=== PATIENT | male | born 1960 | race Caucasian/White ===

== ENCOUNTER → 2024-01-03 08:47 | Outpatient (REF) | payer BC, SELFPAY ==
[2024-01-03 09:51] LABS: Lithium 0.4 mmol/L (0.6-1.2)
== END ==
LOC: REG 08:47
PROVIDERS: ATTENDING PHYSICIAN Psychiatry & Neurology Psychiatry; FAMILY PHYSICIAN Internal Medicine; REFERRING PHYSICIAN Specialist
DX: Z79.899 Other long term (current) drug therapy (principal)
CPT/HCPCS: 36415; 80178

== ENCOUNTER → 2024-02-04 11:18 | Outpatient (REF) | payer BC, SELFPAY ==
[2024-02-04 12:15] LABS: % Basophils 0.5 % (0-2); % Eosinophils 3.5 % (0-6); % Immature Granulocytes 0.2 % (0-0.5); % Lymphocytes 18.2 % (20.5-51.1); % Monocytes 6.2 % (1.7-9.3); % Neutrophils 71.4 % (42.2-75.2); Absolute Eosinophils 0.3 10^3/uL (0-0.7); Absolute Lymphocytes 1.6 10^3/uL (1.2-3.4); Absolute Monocytes 0.5 10^3/uL (0.1-0.6); Absolute Neutrophils 6.1 10^3/uL (1.4-6.5); Hemoglobin 14.5 g/dL (13.0-18.0); Mean Corp Hgb Conc. 33.7 g/dL (33.0-37.0); Mean Corpuscular Hgb 30.2 pg (27.0-31.0); Mean Corpuscular Volume 89.6 fL (80.0-94.0); Mean Platelet Volume 11.1 fL (7.4-10.4); Nucleated Red Blood Cells % 0 % (-); Platelet Count 205 10^3/uL (130-400); Red Cell Dist. Width 13.3 % (11.5-14.5); White Blood Cell Count 8.6 10^3/uL (4.8-10.8)
[2024-02-04 12:38] LABS: ALT (SGPT) 47 U/L (0-50); AST (SGOT) 41 U/L (17-59); Albumin 4.5 g/dl (3.5-5.0); Alkaline Phosphatase 77 U/L (38-126); Blood Urea Nitrogen 17 mg/dl (9-20); Calcium 9.9 mg/dl (8.4-10.2); Carbon Dioxide 28 mmol/L (22-30); Chloride 107 mmol/L (98-107); Glucose 107 mg/dl (70-99); Lithium 0.5 mmol/L (0.6-1.2); Potassium 4.4 mmol/L (3.5-5.1); Sodium 139 mmol/L (135-145); Total Bilirubin 0.6 mg/dl (0.2-1.3); Total Protein 7.1 g/dl (6.3-8.2); eGFR > 60.00
[2024-02-04 13:17] LABS: Free T4 0.92 ng/dl (0.78-2.19); TSH 1.92 uIU/ml (0.47-4.68); Vitamin D, 25-OH*** 77.9 ng/mL (30-80)
[2024-02-04 13:43] LABS: Folate 11.8 ng/ml (2.76-20); Vitamin B12 764 pg/ml (239-931)
[2024-02-05 20:11] LABS: Total T3 (Sendout) 73 ng/dL (80-200)
== END ==
LOC: REG 11:18
PROVIDERS: ATTENDING PHYSICIAN Psychiatry & Neurology Psychiatry; FAMILY PHYSICIAN Internal Medicine
DX: F33.1 Major depressive disorder, recurrent, moderate (principal); E03.9 Hypothyroidism, unspecified; E53.9 Vitamin B deficiency, unspecified; E55.9 Vitamin D deficiency, unspecified; Z51.81 Encounter for therapeutic drug level monitoring
CPT/HCPCS: 36415; 80053; 80178; 82306; 82607; 82746; 84439; 84443; 84480; 85025

== ENCOUNTER → 2024-03-01 09:20 | Outpatient (REF) | payer BC, SELFPAY ==
[2024-03-01 10:47] LABS: Amylase 112 U/L (30-110); Blood Urea Nitrogen 17 mg/dl (9-20); Calcium 9.7 mg/dl (8.4-10.2); Carbon Dioxide 24 mmol/L (22-30); Chloride 108 mmol/L (98-107); Glucose 115 mg/dl (70-99); Lipase 268 U/L (23-300); Potassium 4.3 mmol/L (3.5-5.1); Sodium 141 mmol/L (135-145); eGFR > 60.00
[2024-03-01 12:02] LABS: Glycohemoglobin (HgbA1c) 5.4 % (4.0-5.6)
== END ==
LOC: REG 09:20
PROVIDERS: ATTENDING PHYSICIAN Psychiatry & Neurology Psychiatry; FAMILY PHYSICIAN Internal Medicine
DX: R73.9 Hyperglycemia, unspecified (principal); K86.89 Other specified diseases of pancreas; E29.1 Testicular hypofunction
CPT/HCPCS: 36415; 80048; 82150; 83036; 83690; 84270; 84402; 84403

== ENCOUNTER 2024-09-21 14:53 | Emergency (ER) | payer BC, SELFPAY ==
[2024-09-21 15:05] VITALS: BP 139/79
[2024-09-21 15:25] LABS: % Basophils 0.7 % (0-2); % Immature Granulocytes 0.3 % (0-0.5); % Lymphocytes 28.7 % (20.5-51.1); % Monocytes 7.7 % (1.7-9.3); % Neutrophils 57.6 % (42.2-75.2); Absolute Basophils 0.1 10^3/uL (0-0.2); Absolute Eosinophils 0.4 10^3/uL (0-0.7); Absolute Lymphocytes 2.2 10^3/uL (1.2-3.4); Absolute Monocytes 0.6 10^3/uL (0.1-0.6); Absolute Neutrophils 4.4 10^3/uL (1.4-6.5); Hematocrit 41.9 % (39.0-52.0); Hemoglobin 14.5 g/dL (13.0-18.0); Mean Corp Hgb Conc. 34.6 g/dL (33.0-37.0); Mean Corpuscular Hgb 30.7 pg (27.0-31.0); Mean Corpuscular Volume 88.6 fL (80.0-94.0); Mean Platelet Volume 10.7 fL (7.4-10.4); Nucleated Red Blood Cells % 0 % (-); Platelet Count 167 10^3/uL (130-400); Red Blood Cell Count 4.73 10^6/uL (4.70-6.10); Red Cell Dist. Width 12.7 % (11.5-14.5); White Blood Cell Count 7.6 10^3/uL (4.8-10.8)
[2024-09-21 15:41] LABS: ALT (SGPT) 22 U/L (0-50); AST (SGOT) 26 U/L (17-59); Albumin 4.7 g/dl (3.5-5.0); Alkaline Phosphatase 57 U/L (38-126); Blood Urea Nitrogen 20 mg/dl (9-20); Calcium 9.4 mg/dl (8.4-10.2); Carbon Dioxide 27 mmol/L (22-30); Chloride 105 mmol/L (98-107); Glucose 104 mg/dl (70-99); Sodium 142 mmol/L (135-145); Total Bilirubin 0.4 mg/dl (0.2-1.3); Total Protein 7.2 g/dl (6.3-8.2); eGFR > 60.00
[2024-09-21 15:48] LABS: Troponin I < 0.012 ng/ml
[2024-09-21 18:39] VITALS: BP 145/95
--- NOTE | 2024-09-21 18:40 | EDRN ---
Addendum entered by Prisca Gonzales RN 09/21/24 18:55:
Pt also stated that he had down some power walking on Tuesday and pain was noted Tue and am only but today more pronounced and frequent.
Original Note:
Pt states he arrives for pain in L hip upper femur that is intermittent and very sharp. Pt states he fell in pain in ED triage area. Pt states he was standing and pain came on and he could not maintain standing position. Pt also states he gets chest
tightness w/ his pain.
[2024-09-21 19:00] VITALS: BP 133/95
--- NOTE | 2024-09-21 19:31 | ED.GENMED ---
History of Present Illness
General
Chief Complaint: Chest Pain
Source: patient
Exam Limitations: none
Time Seen by Provider: 09/21/24 18:41
History of Present Illness
History of Present Illness:
This is a 64 year old male that comes in with c/o left thigh pain. States that on Tuesday around 6:60-7 he was out walking with his . States that he started with left hip pain and it went away. Then on Tuesday at 6-6:30 he was awakened from
sleep with severe pain on the left hip/thigh that lasted about 4 second and then it was gone. Yesterday the same thing happened and it went away. This morning and throughout the day he gets this sharp pain about 7 times. States that when he gets
this pain his whole body feels tight. States that he has had a headache over the past couple of days. Denies any fever, chills, SOB, abd pain, nausea, vomiting, diarrhea, dizziness, urinary burning.
Past History
Past History
ED Past Medical History: HTN, Hypercholesterolemia, Psychiatric (Depression, ) and Other (ADHD)
ED Past Surgical History: Other (Deviated septum repair)
Social History
Tobacco: Non-smoker
Alcohol: Occasional
Personal:
Living: with family
Review of Systems
Review of Systems
All Other Systems: ROS reviewed and negative except as documented in HPI and ROS
Constitutional: Reports no symptoms; Denies fever or chills
EENT: Reports no symptoms
Respiratory: Reports no symptoms; Denies cough or trouble breathing
Cardiac: Reports no symptoms; Denies chest pain
ABD/GI: Reports no symptoms; Denies abdominal pain, nausea, vomiting or diarrhea
: Reports no symptoms; Denies dysuria, frequency or urgency
Musculoskeletal: Reports other (Left thigh pain)
Skin: Reports no symptoms
Neurological: Reports headache; Denies dizzy
Psychiatric: Reports no symptoms
Phy Exam
General Physical Exam
General Presentation: well appearing and no apparent distress
General age: appears stated age
General Skin: warm and dry
General Habitus: normal
General Mental: alert
General Hydration: appears well hydrated
ENT Exam
ENT Exam: TM's normal, pharynx normal and neck supple
Eye Exam
Eye Exam: EOMI
Cardiovascular Exam
Cardiovascular Exam: regular rate/rhythm, no edema, no murmur and normal peripheral pulses
Pulmonary Exam
Pulmonary Exam: lungs clear, no respiratory distress, no rales, chest non tender, no crackles, no rhonchi, no wheezing and no cough
Gastrointestinal Exam
Gastrointestinal Exam: normal bowel sounds, non tender, soft, no organomegaly, no pulsatile mass and non distended
Musculoskeletal Exam
Musculoskeletal Exam: full ROM and other (Negative for discomfort with palpation over the ischial spine. Slight tenderness in the left lateral thigh. Negative discomfort with flexion, inversion or eversion. )
Skin Exam
Skin Exam: normal color, warm/dry, no rash and no petechia
Psychiatric Exam
Psychiatric Exam: normal mood/affect
Scores
Heart Score for Chest Pain Patients
STEMI patient?: Not applicable
Course
Orders/Labs/Results
Orders:
Orders
09/21/24 14:54
ECG [Electrocardiogram (*1)] Urgent
Reason for Study: Chest Pain
EKG- Treatment ONCE
09/21/24 15:14
Complete Blood Count/With Diff Urgent
Comprehensive Metabolic Panel Urgent
Troponin I Urgent
09/21/24 19:31
Hip, Left 2-3 Views [CR Hip - LT w/wo Pel 2-3 Vw*] Urgent
Comment:
Reason For Exam: Left hip/thigh pain
Include a pelvis x-ray?: Yes
US Legs, Left [US Periph Venous LOWER Ext LT] Urgent
Comment:
Reason For Exam: Left sided hip pain
09/21/24 21:59
Cyclobenzaprine HCl [Flexeril] 10 mg .ROUTE .STK-MED ONE
09/21/24 22:01
Cyclobenzaprine HCl [Flexeril] 10 mg PO NOW STA
Abnormal Lab Results
09/21/24
15:14
MPV 10.7 H fL
(7.4-10.4)
Glucose 104 H mg/dl
(70-99)
09/21/24 15:14
09/21/24 15:14
Glucose nonfasting. Troponin <0.012
Vital Signs
Initial and Last Documented VS:
Initial Vital Signs
Temp Pulse Resp BP Pulse Ox
98.2 F 75 16 139/79 98
09/21/24 15:05 09/21/24 15:05 09/21/24 15:05 09/21/24 15:05 09/21/24 15:05
Last Documented Vital Signs
Temp Pulse Resp BP Pulse Ox
98.2 F 85 21 131/94 97
09/21/24 15:05 09/21/24 20:44 09/21/24 20:30 09/21/24 21:40 09/21/24 20:00
MDM/Problems Addressed
Differential Diagnosis Includes:
DVT, Musculoskeletal pain,
MDM/Problems Addressed:
This is a 64 year old male that comes in with c/o left hip/thigh pain. States that this started on Tuesday and lasted for about 4 second and went away. States that he has had this every day but it goes away. Today he has had 7 episodes of this pain
and it goes away but he felt that the pain was getting worse.
Will get X-ray of hip and US.
Back into see patient. Explained that his blood work is normal. His US is negative for DVT, but there is most likely a bakers cyst and there is possible a torn Muscle. Patient to follow up with the senior medical billing specialist for further evaluation.
Patient states that the muscle relaxer did help. Will give patient a muscle relaxer. He can also use Tylenol and Ibuprofen for pain. Heat or ice to the leg which ever makes him feel better. Return with any concerns.
Chronic conditions affecting care:
NA
Acute Exacerbation and/or Progression of Chronic Illness:
NA
*Radiology
Radiology exam reviewed: preliminary read by ED provider (Left hip/pelvis- Degenerative changes, Negative for fractures. ), radiology read reviewed (US-No evidence of left lower extremity deep venous thrombosis. Ovoid mass/collection in the
popliteal fossa. Possible complex sanchez's cyst, or hematoma. Cannot exclude abscess in the proper clinical setting. Small hypoechoic collection within the posterolateral mid thigh. This could represent a ) and other (US cont-small hematoma/muscle
tear. However, nonspecific. Clinical corelation recommened. If indicated, follow-up nonemergent MRI may be considered. )
*Pulse Oximetry
Patient hypoxic: no
*EKG
Interpreted by ED Provider?: Yes
Heart Rate: 65
Rate: normal
Rhythm: sinus
[place]: left axis deviation
Interval: normal interval
QRS Pattern: normal QRS
Ischemia: no ischemia
*Die Trouble Shooter Interpretation
Rate: normal
Heart Rate: 75
Rhythm: sinus
*Critical Care Note
Total Time (30-74mins, 75-104mins- exclusive of procedures): Not Applicable
ED Attending Note
-
Portions of this chart may have been created with voice recognition software.� Occasional wrong word or��sound alike� substitutions may have occurred due to the inherent limitations of voice recognition software.
Discharge Plan
Departure
Patient Disposition: Home (Routine Discharge)
Date of Disposition: 09/21/24
Time of Disposition: 23:18
Patient with high blood pressure during this ER visit?: Yes
Condition: Good
Covid-19: Not Applicable
Discharge Problem:
Left thigh pain, Sanchez cyst, Muscle tear possible
Instructions: Sanchez's Cyst (DC), Lower Extremity Muscle Strain (DC), BLOOD PRESSURE
Prescriptions:
New
cyclobenzaprine 10 mg tablet
10 mg PO Q8H PRN (Reason: Muscle spasm) Qty: 14 0RF
No Action
lithium carbonate 300 MG tablet extended release
300 mg PO DAILY
aspirin [Aspir-Low] 81 MG tablet,delayed release (DR/EC)
81 mg PO DAILY
docosahexaenoic acid-epa 1 CAP capsule
2 cap PO DAILY
cholecalciferol (vitamin D3) 2,000 UNIT tablet
2,000 unit PO DAILY
Diet Pill And Tea
0.1 ) .Route BID
Referrals:
Charley Juárez MD [Family Provider] -
Kaveh Roblero MD [Active] - Follow up in 2-3 days
Activity Restrictions/Additional Instructions:
As discussed, your blood work is normal. Your Ultrasound is negative for DVT but there is a possible sanchez's. There is also a possible Muscle tear. This will need further evaluation with the senior medical billing specialist. You have had a prescription for a
muscle relaxer sent to your Pharmacy. You my also use Tylenol and Ibuprofen for pain. You can also use Heat or ice to the leg which ever feels better. IF YOU HAVE ANY OTHER CONCERNS PLEASE RETURN TO THE EMERGENCY ROOM.
Interventions
Interventions:
*Risk Screen - Suicide Last Done: 09/21/24 15:05
*General Assessment Last Done: 09/21/24 18:34
*Neglect/Abuse Screening Last Done: 09/21/24 15:05
ED- Fall Risk Assessment Last Done: 09/21/24 18:40
*ED COVID-19 Vaccine History Last Done: 09/21/24 18:34
ED- Cardiac Assessment Last Done: 09/21/24 18:49
Discharge Date and Time
Print Language: [id number]
[2024-09-21 20:00] VITALS: BP 141/90
[2024-09-21 21:40] VITALS: BP 131/94
[2024-09-21] MEDS: FLEXERIL 10 MG PO (22:03)
== END 2024-09-21 23:47 | disposition home or self-care (01) ==
LOC: EMR 14:53
PROVIDERS: Registered Nurse; EMERGENCY PHYSICIAN Emergency Medicine; FAMILY PHYSICIAN Internal Medicine
DX: M79.652 Pain in left thigh (principal); M71.22 Synovial cyst of popliteal space [Baker], left knee; I10 Essential (primary) hypertension
CPT/HCPCS: 99285; 73502; 80053; 84484; 85025; 93005; 93971

== ENCOUNTER → 2025-05-28 11:42 | Outpatient (REF) | payer OTHER, SELFPAY | LOC: HWRCS 11:42 | PROVIDERS: ATTENDING PHYSICIAN Nurse Practitioner; FAMILY PHYSICIAN Internal Medicine | DX: I45.10 Unspecified right bundle-branch block (principal); I10 Essential (primary) hypertension; E78.00 Pure hypercholesterolemia, unspecified; R53.83 Other fatigue; R06.09 Other forms of dyspnea | CPT/HCPCS: 78452; 93017; A9500 ==